=== PATIENT | male | born 1975 | race Caucasian/White ===

== ENCOUNTER 2017-05-08 14:56 | Emergency (ER) | payer OTHER ==
[~2017-05-08] VITALS: Ht 188 cm; Wt 110.5 kg
[2017-05-08 15:00] VITALS: BP 153/99; TEMP 36.8; Ht 188 cm; Wt 110.5 kg
[2017-05-08] MEDS ORDERED: DIPHTHERIA/TETANUS/PERTUSSIS 0.5 ML SYR/VIAL IM. ONE (15:30)
[2017-05-08] MEDS ORDERED: LIDO/EPINEPHRINE/SOD BICARB 20 ML VIAL INFIL ONE (15:30)
--- NOTE | 2017-05-08 15:32 | EMERGENCY ROOM VISIT NOTE ---
ED Visit Note First contact with patient: 15:02 CHIEF COMPLAINT: Fall 1 hour ago, scalp laceration HISTORY OF PRESENT ILLNESS: Patient is an otherwise healthy 41-year-old white male who presents emergency department for evaluation of an occipital scalp laceration that he sustained about an hour ago. He walked outside of a building on campus, slipped on the snow-covered concrete sidewalk and slipped backwards, landing primarily on his right side, his head followed through, and he struck the right back of his head on the concrete. He did not lose consciousness. He reports that there was a student bystander who inquired whether he was okay. The patient was able to get up without difficulty. He was very slightly dazed initially, but was able to finish what he was doing for work, then went back into the building and spoke with coworkers. They noticed that his head was bleeding. He applied pressure with a towel, and bleeding has otherwise been controlled. He notes only a mild, 3/10 pain where he struck his head, denies any generalized headache. There has been no lightheadedness, dizziness, nausea, vomiting or vision changes. No difficulty with balance, speech or coordination. The patient has no neck pain. He does not have a prior history of head injuries or concussions. He is not on any blood thinning medications and does not take any NSAIDs regularly. REVIEW OF SYSTEMS: Review of systems as per HPI. All other systems reviewed were negative. 10 systems reviewed. PMH: Electronic medical records are reviewed and summarized as above/below. See Problem List. Old records were reviewed here and he had a tetanus administered in 2004. SOCIAL HISTORY: Patient lives at home with his parents. Employed by the [employer]. Non-smoker.. PHYSICAL EXAM: Vital Signs: Reviewed Nurse's notes. CONSTITUTIONAL: Patient is a pleasant, well-appearing 41-year-old white male who is awake and alert and in no acute distress. GCS: 15 HEENT: Right occipital scalp hematoma, with 1 cm gaping scalp laceration. Pupils equal, round, reactive to light and accommodation. EOMs intact without nystagmus. Sclera are anicteric. Tympanic membranes intact, with normal landmarks. External canals are clear. No hemotympanum or Tracey sign. Oral and nasopharynx are clear. No CSF rhinorrhea. Mucous membranes are moist. NECK: Supple, nontender, no lymphadenopathy. Full range of motion. EXTREMITIES: No cyanosis, edema, joint tenderness or swelling. No deformity. NEUROLOGICAL: Alert and oriented x4. Cranial nerves 2 through 12, sensation and strength grossly intact. Gait is normal. Mini-Mental Status exam is unremarkable. EMERGENCY DEPARTMENT COURSE: The wound was cleaned with saline and Betadine and irrigated with saline. Sterile technique was used and the wound was anesthetized with 1% buffered lidocaine with epinephrine. The wound edges were then approximated with 2 skin brice. Bacitracin ointment was applied as a dressing. I discussed with the patient at length signs and symptoms of a worsening head injury/concussion. At this point, based on his physical exam findings and mechanism of injury, it was felt that skull fracture and intracranial bleed were unlikely and therefore using shared decision making, head CT was deferred at this time. Patient was educated on the worsening signs or symptoms for which he should seek immediate medical attention. Wound care measures were also discussed. He was welcome to return to the emergency department for for recheck, otherwise should follow-up with [facility] for recheck and staple removal. Medication reconciliation: I attest that I have personally reviewed the patient' s current medication list. Blood pressure screening: Patient was found to have a slightly elevated blood pressure due to circumstances. I do not believe that the patient requires hypertension monitoring. Problem List Medical Problems: (1) Kidney stone Status: Resolved Current/Historical Medications No Active Prescriptions or Reported Meds Allergies Uncoded Allergies: NKDA (Allergy, Unknown, 06/13/04) Vital Signs Date Time Temp Pulse Resp B/P (MAP) Pulse Ox O2 Delivery O2 Flow Rate FiO2 05/08/17 16:18 68 18 95 05/08/17 15:00 36.8 97 17 153/99 97 Room Air Medications Administered Medications (Trade) Dose Ordered Sig/Giovany Route Start Time Stop Time Status Last Admin Dose Admin Diphtheria/ Pertussis/Tetanus Vacc (Adacel Inj) 0.5 ml ONCE ONCE IM. 05/08/17 15:30 05/08/17 15:31 DC 05/08/17 15:30 0.5 ML Departure Information Impression Primary Impression: Scalp laceration Additional Impressions: Fall from slipping on snow Work place accident Prescriptions No Active Prescriptions or Reported Meds Referrals No Doctor, Assigned (PCP) Patient Instructions [facility] Additional Instructions Keep wound clean and dry. Do not allow any crusting or dried blood to accumulate on brice. May wash the area gently when shampooing the hair. Use an antibiotic ointment for 3-4 days, then let wound dry. Staple removal in 10- 12 days. Return sooner for any signs of infection (increasing redness, swelling , drainage). Ice and elevate for swelling and pain. Tylenol 1000 mg every 6 hrs for pain. Problems could arise over the next 24 to 48 hours. You should not be left alone and MUST go to the hospital immediately if you: -Have a headache that suddenly gets worse. -Are very drowsy or cannot be woken up from sleep. -Can't recognize people or places. -Have repeated vomiting. -Behave unusually, seemed confused, or start acting irritable. -Have a seizure (arms and legs start jerking uncontrollably). -Have weak or numb arms or legs. -Are unsteady on your feet -Experience slurred speech or difficulty speaking. Follow up with [facility] for recheck as needed, and staple removal. May return to work 05/09/2017 without restrictions. Problem Qualifiers Primary Impression: Scalp laceration Encounter type: initial encounter Qualified Codes: S01.01XA - Laceration without foreign body of scalp, initial encounter Additional Impressions: Fall from slipping on snow Encounter type: initial encounter Qualified Codes: W00.9XXA - Unspecified fall due to ice and snow, initial encounter
[2017-05-08 16:18] VITALS: PULSE 68; O2SAT 95
== END 2017-05-08 16:20 | disposition home or self-care (01) ==
LOC: C.EDB 14:56 → C.EDD 16:20
DX: S01.01XA Laceration without foreign body of scalp, initial encounter (principal); W00.0XXA Fall on same level due to ice and snow, initial encounter; Y92.214 College as the place of occurrence of the external cause; Y99.0 Civilian activity done for income or pay